=== PATIENT | male | born 1940 | race Caucasian/White ===

== ENCOUNTER → 2017-02-04 | Outpatient (REF) ==
[2017-02-04 19:25] LABS: PSA-TOTAL 0.98 ng/mL (0-4); THYROID STIMULATING HORMONE 2.69 uIU/mL (0.465-4.680)
== END ==
LOC: ZLAB.WCH 18:08
PROVIDERS: Internal Medicine
DX: Z01.89 Encounter for other specified special examinations (principal)
CPT/HCPCS: G0103

== ENCOUNTER 2017-03-06 08:46 | Day surgery (SDC) | payer MEDICARE, BC ==
[~2017-03-06] VITALS: Ht 182.9 cm; Wt 88.6 kg
[2017-03-06] VITALS (8 sets, daily range): BP systolic 110–168; BP diastolic 43–84; PULSE 59–67; TEMP 97.6
[2017-03-06] MEDS ORDERED: VASOTEC20 MG PO (10:15)
[2017-03-06] MEDS ORDERED: SYNTHROID0.05 MG/TA PO (10:18)
[2017-03-06] MEDS ORDERED: PRAVACHOL 40MG40 MG PO (10:19)
[2017-03-06] MEDS ORDERED: NORVASC 5MG5 MG/TAB PO (10:19)
[2017-03-06] MEDS ORDERED: ZIAC 10/6.25M1 UDTAB PO (10:20)
[2017-03-06] MEDS ORDERED: MICROZIDE12.5 MG PO (10:21)
[2017-03-06] MEDS ORDERED: ASPIRIN 81M81 MG/TA2 PO (10:21)
[2017-03-06] MEDS ORDERED: NORCO 325 MG-51 TAB PO (15:33)
== END 2017-03-06 17:29 | disposition home or self-care (01) ==
LOC: SDCO 08:46
DX: K40.91 Unilateral inguinal hernia, without obstruction or gangrene, recurrent (principal); K40.90 Unilateral inguinal hernia, without obstruction or gangrene, not specified as recurrent; E03.9 Hypothyroidism, unspecified; I10 Essential (primary) hypertension; I49.5 Sick sinus syndrome; Z95.0 Presence of cardiac pacemaker; Z98.52 Vasectomy status
CPT/HCPCS: A4315; C1781; J0690; J1100; J1885; J2270; J2405; J2704; J3010; J7120

== ENCOUNTER → 2018-02-03 | Outpatient (REF) ==
[~2018-02-03] MED LIST: ASPIRIN 81M81 MG/TA2 PO; MICROZIDE12.5 MG PO; NORCO 325 MG-51 TAB PO; NORVASC 5MG5 MG/TAB PO; PRAVACHOL 40MG40 MG PO; SYNTHROID0.05 MG/TA PO; VASOTEC20 MG PO; ZIAC 10/6.25M1 UDTAB PO
[2018-02-03 17:02] LABS: THYROID STIMULATING HORMONE 3.39 uIU/mL (0.465-4.680)
[2018-02-03 17:18] LABS: PSA-TOTAL 0.89 ng/mL (0-4)
== END ==
LOC: ZLAB.WCH 16:12
PROVIDERS: Internal Medicine
DX: Z01.89 Encounter for other specified special examinations (principal)
CPT/HCPCS: G0103

== ENCOUNTER → 2018-06-08 | Outpatient (REF) | LOC: ZLAB.WCH 16:19 | DX: Z01.89 Encounter for other specified special examinations (principal) ==

== ENCOUNTER 2021-01-02 08:05 | Day surgery (SDC) | payer MEDICARE, BC ==
[~2021-01-02] VITALS: Ht 183 cm; Wt 79.9 kg
[2021-01-02] VITALS (9 sets, daily range): BP systolic 96–117; BP diastolic 64–98; PULSE 56–75; TEMP 98.3
[~2021-01-02 08:05] MED LIST changes: +NORVASC 10MG10 MG PO; -NORVASC 5MG5 MG/TAB PO
[2021-01-02 08:56] LABS: HEMOGLOBIN 12.5 g/dl (13.5-18.0); MEAN CELL VOLUME 92 fl (80.0-100.0); MEAN CORPUSCULAR HEMOGLOBIN 32 pg (27.0-31.0); MEAN CORPUSCULAR HGB CONC 34 g/dl (33.0-37.0); PLATELET COUNT 188 K/mm3 (130-400); RED BLOOD COUNT 3.96 M/mm3 (4.20-5.60); REDCELL DISTRIBUTION WIDTH-CV 13.8 % (11.5-14.5)
[2021-01-02 08:57] LABS: HEMATOCRIT 36.3 % (42.0-52.0)
[2021-01-02 09:08] LABS: CREATININE, serum 1.32 (0.66-1.25); POTASSIUM 4.1 mmol/L (3.4-5.0)
[2021-01-02 09:17] LABS: INR 1.3 (0.8-3.0); PROTHROMBIN TIME 14.6 SECONDS (9.7-12.8)
[2021-01-02] MEDS ORDERED: LEXAPRO 5MG5 MG PO (09:53)
[2021-01-02] MEDS ORDERED: CEPHALEXIN500 M1 PO (10:50)
--- NOTE | 2021-01-02 13:25 | NUR ---
DC intructions reviewed with pt and , both express understanding. Pt has been resting in bed x2 hr post procedure, with HOB over 30 degrees. teletypesetter monitor on since return from procedure. Pt has tolerated PO with no issue. Steady on feet to dress in room. INT DC'd with catheter intact. Dressing to left upper chest remains clean, dry and intact. Pt assisted out to 's car by wheelchair.
== END 2021-01-02 13:25 | disposition home or self-care (01) ==
LOC: COL.CAR 08:05
PROVIDERS: Internal Medicine Cardiovascular Disease
DX: Z45.010 Encounter for checking and testing of cardiac pacemaker pulse generator [battery] (principal); R00.1 Bradycardia, unspecified; I10 Essential (primary) hypertension; Z20.822 Contact with and (suspected) exposure to COVID-19
CPT/HCPCS: C1785; J0690; J2250; J3010; J7030